=== PATIENT | female | born 1980 | race Caucasian/White ===

== ENCOUNTER 2021-03-12 19:03 | Emergency (ER) | payer MEDICARE, MEDICAID, SELFPAY ==
[2021-03-12 19:30] VITALS: BP 131/91; PULSE 87; RESP 20; TEMP 36.6; O2SAT 100
[2021-03-12 21:10] LABS: Add Urine Microscopic? YES; Amorphous Sediment Urine Few; Appearance Urine Cloudy (Clear); Bilirubin Urine Negative (Negative); Blood Urine Negative (Negative); Color Urine Yellow (Yellow); Glucose Urine UA Negative (Negative); Ketones Urine Trace mg/dL (Negative); Leukocyte Esterase Ur Trace LEU/UL (Negative); Mucus Urine Rare /lpf; Nitrate Urine Negative (Negative); Protein Urine Negative (Negative); Specific Grav Ur 1.021 (1.001-1.035); Squamous Epithelial Cell Urine Many /hpf (Few); Urobilinogen Urine Negative mg/dL (<2.0)
--- NOTE | 2021-03-12 21:53 | ED.FEMALEGU ---
HPI - Female Genitourinary General Chief complaint: Urogenital-Female Stated complaint: fb to vag Time Seen by Provider: 03/12/21 20:43 Source: patient and RN notes reviewed Mode of arrival: ambulatory Limitations: no limitations History of Present Illness HPI Narrative: This is a 40 year old female with history of hyperlipidemia and bipolar who presents for evaluation of vaginal foreign body. Patient states her last menstrual cycle was 10 days ago. She noticed an odor and vaginal itching a couple of days ago. She also reports she had nausea and pink tinged vaginal discharge. Today she noticed tampon string while showering , and she remembers she accidentally left in a tampon. She was able to remove the tampon today. She currently denies nausea, vomiting, abdominal pain, weakness or fever. Related Data Home Medications Medication Instructions Recorded Confirmed divalproex 500 mg tablet,delayed 500 mg PO Q12H 05/06/20 05/06/20 release lactobacillus combination no.8 3 3,000 mmu cells PO DAILY 05/06/20 05/06/20 billion cell capsule multivitamin 1 tablet PO DAILY 05/06/20 05/06/20 paroxetine HCl 10 mg tablet 10 mg PO DAILY 05/06/20 05/06/20 Allergies Allergy/AdvReac Type Severity Reaction Status Date / Time Penicillins Allergy Mild RASH Verified 03/12/21 20:02 prochlorperazine Allergy Mild HYPERACTIVI Verified 03/12/21 20:02 TY Cat Dander Allergy Severe Hives / Uncoded 07/18/14 14:21 Red Face Review of Systems Review of Systems: All systems reviewed & are unremarkable except as noted in HPI and below PMFSH Past Medical History Medical History (Updated 03/13/21 @ 00:01 by Micah Madera) Anxiety Asthma Depression History of herpes genitalis Surgical History Surgical History History of strabismus surgery History of tubal ligation Family History Family History Grandparent Family history of elevated blood lipids Family history of coronary artery disease Family history of throat cancer Diabetes mellitus Mother Asthma Family history of seizure disorder Other Cerebrovascular accident Social History Social History Smoking status: Never smoker Second hand tobacco smoke exposure: No Smoking end date: 08/02/11 Alcohol intake: current Gender identity (if verbalized by the patient): Female Exam Const: General: no acute distress and alert Orientation/consciousness: patient oriented x3 Eyes: EOM: EOMs intact bilaterally Resp: Effort & Inspection: normal respiratory effort and no retractions Auscultation: clear to auscultation bilaterally Cardio: Rate: regular rate Rhythm: regular rhythm Heart sounds: no murmurs GI: GI Palp: Yes Soft to palpation, No Tenderness to palpation present (GI) and No Guarding due to palpation present (GI) Auscultation: normal bowel sounds : External Female Exam: normal external appearance Speculum Exam - Vagina: no foreign bodies Speculum Exam - Cervix: normal appearance of the cervix and Cervical os closed Bimanual exam- vagina & uterus: no cervical motion tenderness Bimanual Exam- Adnexa, other: no masses Skin: General skin exam: normal color Rashes: no rashes Neuro: General: patient oriented x3, moves all extremities and CN's II-XI intact bilaterally Course Reevaluation(s) Reevaluation #1: I discussed with patient she will be treated for BV. She request oral medication instead of vaginal medications. Date: 03/12/21 Time: 21:56 Vital Signs Vital signs: Vital Signs Temperature 97.8 F 03/12/21 19:30 Pulse Rate 87 03/12/21 19:30 Respiratory Rate 20 03/12/21 19:30 Blood Pressure 131/91 H 03/12/21 19:30 Pulse Oximetry 100 03/12/21 19:30 Temperature 97.8 F 03/12/21 19:30 Pulse Rate 76 03/12/21 22:21 Respiratory Rate 18 0
[2021-03-12] MEDS: metroNIDAZOLE 250 MG TABLET 500 MG PO (22:13)
[2021-03-12 22:21] VITALS: BP 132/68; PULSE 76; RESP 18; O2SAT 99
== END 2021-03-12 22:22 | disposition home or self-care (01) ==
PROVIDERS: Emergency Provider General Practice; PCP Nurse Practitioner Family
DX: N76.0 Acute vaginitis (principal); E78.5 Hyperlipidemia, unspecified; J45.909 Unspecified asthma, uncomplicated; F41.9 Anxiety disorder, unspecified; F32.9 Major depressive disorder, single episode, unspecified
CPT/HCPCS: 81001; 81025; 87070; 87077; 87491; 87591; 87808; 99284; A9270